=== PATIENT | female | born 1940 | race Hispanic/Latino ===

== ENCOUNTER 2017-05-17 08:08 | Outpatient (CLI) | payer MEDICARE, OTHER | END 2017-05-17 08:09 | disposition home or self-care (01) | LOC: BICMAMMO 08:08 | PROVIDERS: ATTEND Family Medicine | DX: N64.52 Nipple discharge (principal); L98.8 Other specified disorders of the skin and subcutaneous tissue; R92.8 Other abnormal and inconclusive findings on diagnostic imaging of breast | CPT/HCPCS: G0204; G0279; 77066 ==